=== PATIENT | male | born 1950 | race Caucasian/White ===

== ENCOUNTER 2024-04-12 06:04 | Day surgery (SDC) | payer MEDICARE ==
[2024-04-12] VITALS (10 sets, daily range): BP systolic 117–151; BP diastolic 83–113
[~2024-04-12] VITALS: Ht 182.9 cm; Wt 80.5 kg
[~2024-04-12 06:04] MED LIST: ASPI81CH PO; FISH OIL 1,0001 EA10 PO; VITAMIN D; [UNRECOGNIZED DRUG - OTHER]
[2024-04-12] MEDS ORDERED: Lactated Ringer's 1,000 ML IV SCH (06:20)
[2024-04-12] MEDS ORDERED: CeFAZolin Sodium 2,000 MG in NS 100 ML IV SCH (06:20)
--- NOTE | 2024-04-12 06:53 | NUR ---
Ambulatory in Day Surgery Patient confirms NPO status and agrees with scheduled surgery. History, Chart, Medications and Allergies reviewed before start of procedure.Pre-Op teaching done. Pt verbalizes understanding. Patient States Post-Procedure ride home has been arranged.
[2024-04-12] MEDS ORDERED: Bupivacaine 0.5% HCl 5 MG/ML 30MLVIAL ONE (07:04)
[2024-04-12] MEDS ORDERED: FentaNYL Citrate 50 MCG/ML 2 ML Injection ONE ×2 (07:06→08:08)
[2024-04-12] MEDS ORDERED: Etomidate 2MG / ML 10ML Vial ONE (07:08)
[2024-04-12] MEDS ORDERED: SuccINYLCHOLINE Chloride 100 MG/5 ML 5MLSYR ONE (07:39)
[2024-04-12] MEDS ORDERED: Rocuronium Bromide 10 MG/ML 5ML Injection IV ONE (07:39)
[2024-04-12] MEDS ORDERED: Ondansetron HCl 2 MG / ML 2ML Vial ONE (08:07)
[2024-04-12] MEDS ORDERED: Dexamethasone Sod Phos 10 MG/ML 1ML VIAL ONE (08:07)
[2024-04-12] MEDS ORDERED: Labetalol HCL 5 MG/ML 4ML Injection (Single Dose) ONE (09:30)
[2024-04-12] MEDS ORDERED: Sugammadex Sodium 200 MG/2ML SDV (100 MG/ML) ONE (09:32)
[2024-04-12] MEDS ORDERED: HYDROcodone 5-APAP 325 TAB PO PRN (10:10)
--- NOTE | 2024-04-12 10:31 | NUR ---
PT AWAKE, DRESSING CLEAN DRY AND INTACT. PT GIVEN ORANGE JUICE AND CRACKERS. PO PAIN MEDICATION PROVIDED FOR 5/10 PAIN. DENIES NAUSEA. PTS AT BEDSIDE.
--- NOTE | 2024-04-12 11:09 | NUR ---
Discharge instructions reviewed with patient. Patient verbalizes understanding. Copy given to patient to take home. Ambulatory in Day Surgery Patient States Post-Procedure ride home has been arranged. Discharged via wheelchair to private car for ride home.
== END 2024-04-12 22:45 | disposition home or self-care (01) ==
LOC: ORSCMMR 06:04 → ORD 07:30 → ORSCMMR 07:30
PROVIDERS: Surgery
PROC: 0YJ64ZZ Inspection of Left Inguinal Region, Percutaneous Endoscopic Approach (ICD-10-PCS; principal; 2024-04-12 07:30)
PROC: 8E0W4CZ Robotic Assisted Procedure of Trunk Region, Percutaneous Endoscopic Approach (ICD-10-PCS; principal; 2024-04-12 07:30)
PROC: 0YU60JZ Supplement Left Inguinal Region with Synthetic Substitute, Open Approach (ICD-10-PCS; principal; 2024-04-12 07:30)
DX: K40.90 Unilateral inguinal hernia, without obstruction or gangrene, not specified as recurrent (principal); I10 Essential (primary) hypertension; J44.9 Chronic obstructive pulmonary disease, unspecified; G47.33 Obstructive sleep apnea (adult) (pediatric); Z79.82 Long term (current) use of aspirin; K21.9 Gastro-esophageal reflux disease without esophagitis; F17.290 Nicotine dependence, other tobacco product, uncomplicated
CPT/HCPCS: A9270; C1781; J0330; J0690; J1100; J2405; J3010; J7120